=== PATIENT | female | born 1965 | race African-American/Black ===

== ENCOUNTER 2018-10-07 14:48 | Emergency (ER) | payer BC ==
[~2018-10-07] VITALS: Ht 170.2 cm; Wt 99.8 kg
[~2018-10-07 14:48] MED LIST: [UNRECOGNIZED DRUG - CODE]
[2018-10-07 15:17] VITALS: BP 144/82
--- NOTE | 2018-10-07 15:28 | NUR ---
PT TO WAIT IN ER LOBBY. VSS. [id number]
--- NOTE | 2018-10-07 16:40 | NUR ---
PT TO ER BED 3
[2018-10-07 16:49] VITALS: BP 139/79
--- NOTE | 2018-10-07 16:51 | NUR ---
C/O L LOWER BACK PAIN RADIATING TO GROIN AREA AND THIGH X 4 DAYS. DENIES DYSURIA. DENIES TRAUMA. BURNING PAIN 12/16. DENIES N/V/D; SKIN IS PINK/WARM/DRY; AAOX4 WITH EVEN AND STEADY GAIT; VSS; PATIENT POSITIONED FOR COMFORT; HOB ELEVATED; BEDRAILS UP X1; BED DOWN. ER MD MADE AWARE OF PT STATUS.
[2018-10-07] MEDS ORDERED: MORPHINE SULFATE 4 MG/ML SYR IM ONE (18:25)
--- NOTE | 2018-10-07 18:30 | NUR ---
PT REFUSED TO HAVE THE MEDICATION AND LEFT HOSPITAL WITHOUT BEING SEEN BY DR. JONES.
== END 2018-10-07 18:20 | disposition left against medical advice (07) ==
LOC: MED 14:48
DX: M54.5 Low back pain (principal); Z53.21 Procedure and treatment not carried out due to patient leaving prior to being seen by health care provider
CPT/HCPCS: J2270